=== PATIENT | female | born 1960 | race Caucasian/White ===

== ENCOUNTER 2018-06-20 10:37 | Emergency (ER) | payer OTHER ==
[~2018-06-20] VITALS: Ht 162.6 cm; Wt 83.5 kg
[~2018-06-20 10:37] MED LIST: KETO10TA2 PO; ORPH100T PO; TAPAZOLE10 MG
[2018-06-20] MEDS ORDERED: LOSARTAN POTASS25 MG PO (14:55)
== END 2018-06-20 15:10 | disposition home or self-care (01) ==
LOC: ER 10:37
DX: R42 Dizziness and giddiness (principal); R51 Headache; I10 Essential (primary) hypertension

== ENCOUNTER 2018-07-05 07:56 | Day surgery (SDC) | payer OTHER ==
[~2018-07-05 07:56] MED LIST changes: +LOSARTAN POTASS25 MG PO
== END 2018-07-05 10:45 | disposition home or self-care (01) ==
LOC: CIR.AMB 07:56
DX: M51.26 Other intervertebral disc displacement, lumbar region (principal)

== ENCOUNTER 2019-04-13 08:18 | Emergency (ER) | payer OTHER ==
[~2019-04-13] VITALS: Ht 162.6 cm; Wt 85.7 kg
== END 2019-04-13 12:24 | disposition home or self-care (01) ==
LOC: ER 08:18
DX: K04.7 Periapical abscess without sinus (principal)